=== PATIENT | male | born 1980 | race Caucasian/White ===

== ENCOUNTER 2023-04-06 15:04 | Inpatient (IN) | payer OTHER ==
[2023-04-06 15:48] VITALS: BMI 29.2
[2023-04-06] MEDS ORDERED: guaiFENesin 600 MG TABLET.ER (FP) PO PRN (17:52)
[2023-04-06] MEDS ORDERED: ONDANSETRON *ODT* 4 MG TABLET SL PRN (17:52)
[2023-04-06] MEDS ORDERED: POLYETHYLENE GLYCOL (HEALTHYLAX) 3350 17 GM PACKET PO PRN (17:52)
[2023-04-06] MEDS ORDERED: MAGNESIUM HYDROX 2400MG/30ML ORAL SUSPENSION 30 ML CUP PO PRN (17:52)
[2023-04-06] MEDS ORDERED: ACETAMINOPHEN 325 MG TABLET (FP) PO PRN (17:52)
[2023-04-06] MEDS ORDERED: MAG HYDROX/AL HYDROX/SIMETH 30 ML UNIT-DOSE CUP PO PRN (17:52)
[2023-04-06] MEDS ORDERED: IBUPROFEN 600 MG TABLET (FP) PO PRN (17:52)
[2023-04-06] MEDS ORDERED: DICYCLOMINE HCL 10 MG CAPSULE PO PRN (17:52)
[2023-04-06] MEDS ORDERED: P-EPHED 60MG/TRIPROLIDI 2.5MG TABLET PO PRN (17:52)
[2023-04-06] MEDS ORDERED: IBUPROFEN 400 MG TABLET (FP) PO PRN (17:52)
[2023-04-06] MEDS ORDERED: BENZOCAINE/MENTHOL (CHLORASEPTIC ) LOZENGE MM PRN (17:52)
[2023-04-06] MEDS ORDERED: LOPERAMIDE HCL 2 MG CAPSULE PO PRN (17:52)
[2023-04-06] MEDS ORDERED: BENZONATATE 200 MG CAPSULE PO PRN (17:52)
[2023-04-06] MEDS ORDERED: BISMUTH SUBSALICYLATE 524 MG/30 ML PO PRN (17:52)
[2023-04-06] MEDS ORDERED: LISINOPRIL 5 MG TABLET PO ONE (18:51)
[2023-04-06] MEDS: hydrOXYzine PAMOATE 25 MG CAPSULE (FP) PO PRN (19:31)
[2023-04-06] MEDS: THIAMINE HCL 100 MG TABLET (FP) PO SCH (22:26)
[2023-04-06] MEDS: MELATONIN 5 MG TABLETS PO SCH (22:26)
[2023-04-06] MEDS: METHOCARBAMOL 500 MG TABLET PO PRN (22:27)
[2023-04-07] MEDS: PRENATAL VITAMINS W/ FOLIC ACID TABLET (FP) PO SCH (10:33)
[2023-04-07] MEDS: LOSARTAN POTASSIUM 50 MG TABLET PO SCH (10:33)
[2023-04-07] MEDS: MELATONIN 5 MG TABLETS PO SCH (22:05)
[2023-04-07] MEDS: THIAMINE HCL 100 MG TABLET (FP) PO SCH (22:05)
[2023-04-08] MEDS: LOSARTAN POTASSIUM 50 MG TABLET PO SCH (10:31)
[2023-04-08] MEDS: hydrOXYzine PAMOATE 25 MG CAPSULE (FP) PO PRN ×2 (10:31→17:30)
[2023-04-08] MEDS: PRENATAL VITAMINS W/ FOLIC ACID TABLET (FP) PO SCH (10:31)
[2023-04-08] MEDS: METHOCARBAMOL 500 MG TABLET PO PRN (17:30)
[2023-04-08] MEDS: MELATONIN 5 MG TABLETS PO SCH (21:30)
[2023-04-08] MEDS: THIAMINE HCL 100 MG TABLET (FP) PO SCH (21:30)
[2023-04-08] MEDS ORDERED: cloNIDine HCL 0.1 MG TABLET PO ONE (21:32)
[2023-04-09] MEDS: LOSARTAN POTASSIUM 50 MG TABLET PO SCH (09:40)
[2023-04-09] MEDS: PRENATAL VITAMINS W/ FOLIC ACID TABLET (FP) PO SCH (09:40)
[2023-04-09] MEDS ORDERED: LATANOPROST 0.005% OPHTH SOLN 2.5ML BOTTLE OU SCH (22:00)
[2023-04-09] MEDS: THIAMINE HCL 100 MG TABLET (FP) PO SCH (22:05)
[2023-04-09] MEDS: MELATONIN 5 MG TABLETS PO SCH (22:05)
[2023-04-09] MEDS: hydrOXYzine PAMOATE 25 MG CAPSULE (FP) PO PRN (22:06)
[2023-04-09] MEDS: METHOCARBAMOL 500 MG TABLET PO PRN (22:06)
[2023-04-10 05:48] VITALS: TEMP 98.6
[2023-04-10] MEDS: PRENATAL VITAMINS W/ FOLIC ACID TABLET (FP) PO SCH (09:12)
[2023-04-10] MEDS: LOSARTAN POTASSIUM 50 MG TABLET PO SCH (09:12)
[2023-04-10 09:28] VITALS: BP 123/73; PULSE 79; RESP 16
== END 2023-04-10 09:22 | disposition home or self-care (01) | DRG 774 ==
LOC: YASAS 15:04 → Y3N 18:40
PROVIDERS: ADMIT Allergy & Immunology; ATTEND Surgery
PROC: HZ2ZZZZ Detoxification Services for Substance Abuse Treatment (ICD-10-PCS; principal; 2023-04-06)
DX: F10.20 Alcohol dependence, uncomplicated (principal); F14.20 Cocaine dependence, uncomplicated; I10 Essential (primary) hypertension; M54.50 Low back pain, unspecified
CPT/HCPCS: 87635; 87811; 93005; 93010

== ENCOUNTER 2024-04-24 14:53 | Inpatient (IN) | payer OTHER ==
[2024-04-24 16:34] VITALS: BMI 28.8
[2024-04-24] MEDS ORDERED: BENZONATATE 200 MG CAPSULE PO PRN (18:28)
[2024-04-24] MEDS ORDERED: IBUPROFEN 600 MG TABLET (FP) PO PRN (18:28)
[2024-04-24] MEDS ORDERED: guaiFENesin 600 MG TABLET.ER (FP) PO PRN (18:28)
[2024-04-24] MEDS ORDERED: BISMUTH SUBSALICYLATE 524 MG/30 ML PO PRN (18:28)
[2024-04-24] MEDS ORDERED: POLYETHYLENE GLYCOL (HEALTHYLAX) 3350 17 GM PACKET PO PRN (18:28)
[2024-04-24] MEDS ORDERED: MAGNESIUM HYDROX 2400MG/30ML ORAL SUSPENSION 30 ML CUP PO PRN (18:28)
[2024-04-24] MEDS ORDERED: IBUPROFEN 400 MG TABLET (FP) PO PRN (18:28)
[2024-04-24] MEDS ORDERED: LOPERAMIDE HCL 2 MG CAPSULE PO PRN (18:28)
[2024-04-24] MEDS ORDERED: ACETAMINOPHEN 325 MG TABLET (FP) PO PRN (18:28)
[2024-04-24] MEDS ORDERED: DICYCLOMINE HCL 10 MG CAPSULE PO PRN (18:28)
[2024-04-24] MEDS ORDERED: BENZOCAINE/MENTHOL (CHLORASEPTIC ) LOZENGE MM PRN (18:28)
[2024-04-24] MEDS ORDERED: diazePAM 5 MG TABLET PO PRN (18:36)
[2024-04-24] MEDS ORDERED: amLODIPine BESYLATE 5 MG TABLET (FP) ONE (19:33)
[2024-04-24] MEDS: amLODIPine BESYLATE 5 MG TABLET (FP) PO ONE (19:38)
[2024-04-24] MEDS: hydrOXYzine PAMOATE 25 MG CAPSULE (FP) PO PRN (20:38)
[2024-04-24] MEDS: METHOCARBAMOL 500 MG TABLET PO PRN (20:38)
[2024-04-24] MEDS: FAMOTIDINE 20 MG TABLET PO ONE (20:50)
[2024-04-24] MEDS: THIAMINE 100 MG TABLET PO SCH (22:36)
[2024-04-24] MEDS: MELATONIN 5 MG TABLETS PO SCH (22:36)
[2024-04-24] MEDS: LATANOPROST 0.005% OPHTH SOLN 2.5ML BOTTLE OU SCH (22:37)
[2024-04-24] MEDS: diazePAM 5 MG TABLET PO SCH (23:00)
[2024-04-25] MEDS: LOSARTAN POTASSIUM 50 MG TABLET PO SCH (10:41)
[2024-04-25] MEDS: PRENATAL VITAMINS W/ FOLIC ACID TABLET (FP) PO SCH (10:41)
[2024-04-25] MEDS: NAPHAZOLINE/PHENIRAMINE OPHTHALMIC 15 ML BOTTLE OU SCH (12:45)
[2024-04-25 13:19] LABS: HEMATOCRIT 40.7 % (35.4-49); HEMOGLOBIN 13.7 GM/dL (11.7-16.9); MCHC 33.6 g/dl (32.0-35.9); MEAN CELL VOLUME 89.1 fl (80-96); MEAN PLT VOLUME 8.4 fl (7.5-11.1); PLATELET COUNT 276 10^3/uL (134-434); RBC 4.57 M/mm3 (4.00-5.60); RDW 16.4 % (11.9-15.9); WHITE BLOOD COUNT 4.3 K/mm3 (4.0-10.0)
[2024-04-25 13:53] LABS: CHLORIDE 109 mmol/L (98-107); POTASSIUM 3.9 mmol/L (3.5-5.1); SODIUM 143 mmol/L (136-145)
[2024-04-25 13:57] LABS: CALCIUM 9.1 mg/dL (8.5-10.1)
[2024-04-25 13:58] LABS: ANION GAP 7 mmol/L (4-13); BLOOD UREA NITROGEN 11.3 mg/dL (7-18); CO2 27 mmol/L (21-32); GLUCOSE,RANDOM 151 mg/dL (74-106)
[2024-04-25 14:01] LABS: CREATININE 1.1 mg/dL (0.55-1.3); SGOT/AST 21 U/L (15-37); SGPT/ALT 31 U/L (13-61)
[2024-04-25 14:02] LABS: BILIRUBIN,TOTAL 0.6 mg/dL (0.2-1); TOT PROT 6.3 g/dl (6.4-8.2)
[2024-04-25 14:04] LABS: ALK PHOS 51 U/L (45-117)
[2024-04-25] MEDS: OLOPATADINE HCL OU SCH (16:58)
[2024-04-25] MEDS: ONDANSETRON *ODT* 4 MG TABLET SL PRN (22:41)
[2024-04-26] MEDS: MAG HYDROX/AL HYDROX/SIMETH 30 ML UNIT-DOSE CUP PO PRN (00:26)
[2024-04-26] MEDS: diazePAM 5 MG TABLET PO SCH (05:28)
[2024-04-27] MEDS: diazePAM 5 MG TABLET PO SCH (06:40)
[2024-04-27 22:45] VITALS: RESP 17
[2024-04-27] MEDS: cloNIDine HCL 0.1 MG TABLET PO ONE (23:40)
[2024-04-28] MEDS: diazePAM 5 MG TABLET PO ONE (05:42)
[2024-04-28 06:17] VITALS: BP 122/74; PULSE 64; TEMP 97.5
== END 2024-04-28 08:37 | disposition home or self-care (01) | DRG 774 ==
LOC: YASAS 14:53 → Y6N 19:51
PROVIDERS: ADMIT Allergy & Immunology; ATTEND Surgery
PROC: HZ2ZZZZ Detoxification Services for Substance Abuse Treatment (ICD-10-PCS; principal; 2024-04-24)
DX: F10.230 Alcohol dependence with withdrawal, uncomplicated (principal); F14.20 Cocaine dependence, uncomplicated; H40.10X1 Unspecified open-angle glaucoma, mild stage; I10 Essential (primary) hypertension; R73.9 Hyperglycemia, unspecified; Z91.410 Personal history of adult physical and sexual abuse; Z63.0 Problems in relationship with spouse or partner; Z56.0 Unemployment, unspecified; Z59.02 Unsheltered homelessness
CPT/HCPCS: 36415; 80053; 80305; 80307; 85027; 86780; 93005; 93010; Q0162

== ENCOUNTER 2024-04-29 10:43 | Observation (INO) | payer OTHER ==
[2024-04-29 10:54] VITALS: BMI 30.2
[2024-04-29] MEDS: SODIUM CHLORIDE 1,000 ML IV STA (12:10)
[2024-04-29 12:27] LABS: BASO % 1.1 % (0-2.0); EOS % 5.4 % (0-4.5); HEMOGLOBIN 15.2 GM/dL (11.7-16.9); LYMPH % 35.4 % (8-40); MCH 29.8 pg (25.7-33.7); MCHC 33.7 g/dl (32.0-35.9); MEAN CELL VOLUME 88.6 fl (80-96); MEAN PLT VOLUME 7.3 fl (7.5-11.1); MONO % 9.9 % (3.8-10.2); NEUT % 48.2 % (42.8-82.8); PLATELET COUNT 322 10^3/uL (134-434); RBC 5.08 M/mm3 (4.00-5.60); RDW 16.1 % (11.9-15.9)
[2024-04-29] MEDS: ACETAMINOPHEN 1000 MG/100 ML BAG IVPB ONE (12:30)
[2024-04-29] MEDS ORDERED: ACETAMINOPHEN INJECTION 100 ML ONE (12:31)
[2024-04-29 12:50] LABS: CHLORIDE 102 mmol/L (98-107); POTASSIUM 4.2 mmol/L (3.5-5.1); SODIUM 139 mmol/L (136-145)
[2024-04-29 12:51] LABS: CALCIUM 9.3 mg/dL (8.5-10.1)
[2024-04-29 12:52] LABS: ANION GAP 10 mmol/L (4-13); BLOOD UREA NITROGEN 13.2 mg/dL (7-18); CO2 27 mmol/L (21-32); GLUCOSE,RANDOM 88 mg/dL (74-106)
[2024-04-29 12:55] LABS: CREATININE 1.1 mg/dL (0.55-1.3); SGOT/AST 71 U/L (15-37); SGPT/ALT 119 U/L (13-61)
[2024-04-29 12:56] LABS: BILIRUBIN,TOTAL 0.4 mg/dL (0.2-1)
[2024-04-29 12:57] LABS: TOT PROT 7.8 g/dl (6.4-8.2)
[2024-04-29 12:58] LABS: ALK PHOS 66 U/L (45-117)
[2024-04-29 13:01] LABS: ALBUMIN 3.8 g/dl (3.4-5.0); MAGNESIUM 2.3 mg/dL (1.8-2.4)
[2024-04-29 13:47] LABS: HIV INTERPRETATION NEGATIVE (NEGATIVE)
[2024-04-29] MEDS ORDERED: chlordiazePOXIDE HCL 25 MG CAPSULE ONE (15:29)
[2024-04-29] MEDS: chlordiazePOXIDE HCL 25 MG CAPSULE PO ONE (15:30)
[2024-04-29] MEDS: LOSARTAN 50MG/HCTZ 12.5MG 1 TAB PO ONE (15:30)
[2024-04-29] MEDS: HEPARIN NA (PORCINE) 5,000 UNITS/ML 1ML VIAL SQ SCH (21:09)
[2024-04-30] MEDS: LOSARTAN POTASSIUM 50 MG TABLET PO SCH (10:03)
[2024-04-30 11:51] VITALS: RESP 18
[2024-04-30 14:48] LABS: POTASSIUM 4.1 mmol/L (3.5-5.1)
[2024-04-30 14:49] LABS: CALCIUM 9.2 mg/dL (8.5-10.1)
[2024-04-30 14:50] LABS: ALBUMIN 3.3 g/dl (3.4-5.0); BLOOD UREA NITROGEN 18.9 mg/dL (7-18)
[2024-04-30 14:54] LABS: BILIRUBIN,TOTAL 0.4 mg/dL (0.2-1); TOT PROT 6.9 g/dl (6.4-8.2)
[2024-04-30] MEDS: PANTOPRAZOLE SODIUM 40 MG VIAL IVPUSH SCH (15:50)
[2024-04-30] MEDS: ACETAMINOPHEN 325 MG TABLET (FP) PO PRN (15:50)
[2024-04-30] MEDS: SODIUM CHLORIDE 1,000 ML IV SCH (15:51)
[2024-04-30 21:12] LABS: PH,URINE 6.5 (5.0-8.0); URINE APPEARANCE CLEAR; URINE BILIRUBIN NEGATIVE (NEGATIVE); URINE COLOR YELLOW; URINE GLUCOSE (UA) NEGATIVE (NEGATIVE); URINE KETONE NEGATIVE (NEGATIVE); URINE LEUK ESTERASE NEGATIVE (NEGATIVE); URINE NITRITE NEGATIVE (NEGATIVE); URINE PROTEIN NEGATIVE (NEGATIVE); URINE UROBILINOGEN 0.2 mg/dL (0.2-1.0)
[2024-05-01] MEDS: MELATONIN 5 MG TABLETS PO ONE (01:36)
[2024-05-01 02:25] VITALS: TEMP 97.9
[2024-05-01 12:10] LABS: POTASSIUM 3.9 mmol/L (3.5-5.1)
[2024-05-01 12:17] LABS: ALBUMIN 3.1 g/dl (3.4-5.0); BLOOD UREA NITROGEN 14.5 mg/dL (7-18); CALCIUM 8.6 mg/dL (8.5-10.1)
[2024-05-01 12:21] LABS: TOT PROT 6.6 g/dl (6.4-8.2)
[2024-05-01 12:22] LABS: BILIRUBIN,TOTAL 0.4 mg/dL (0.2-1)
[2024-05-01] MEDS: PANTOPRAZOLE 40 MG TABLET PO SCH (13:39)
[2024-05-01 15:50] VITALS: BP 158/109; PULSE 90
== END 2024-05-01 22:06 | disposition home or self-care (01) ==
LOC: JER 10:43 → JERBED 17:06 → J4S 20:14
PROVIDERS: ADMIT Internal Medicine; ATTEND Internal Medicine
PROC: 3E033NZ Introduction of Analgesics, Hypnotics, Sedatives into Peripheral Vein, Percutaneous Approach (ICD-10-PCS; principal; 2024-04-29)
PROC: 3E023GC Introduction of Other Therapeutic Substance into Muscle, Percutaneous Approach (ICD-10-PCS; 2024-04-29)
DX: I20.89 Other forms of angina pectoris (principal); F14.10 Cocaine abuse, uncomplicated; F10.99 Alcohol use, unspecified with unspecified alcohol-induced disorder; I10 Essential (primary) hypertension
CPT/HCPCS: 36415; 70450-TC; 70496-TC; 70498-TC; 71046-TC-FY; 71275-TC; 80053; 80307; 81003; 83690; 83735; 84153; 84443; 84484; 85025; 86803; 87077; 87086; 87389; 93005; 93010; 93306-TC; 96361; 96372; 96374; 99285-25; G0378; J0131; J1644; Q9967